=== PATIENT | female | born 1980 ===

== ENCOUNTER 2018-01-13 09:21 | Emergency (ER) | payer OTHER ==
[2018-01-13 10:41] VITALS: BP 102/76
--- NOTE | 2018-01-13 12:02 | UC ---
Respiratory Complaint HPI - HPI Summary HPI Summary: 5 DAYS OF SINUS CONGESTION/PRESSURE, THICK GREEN NASAL DISCHARGE WITH OCCASIONAL STREAKS OF BLOOD, HEADACHE AND COUGH. NO FEVER, NAUSEA/VOMITING. PATIENT REPORTS SHE GETS SINUS INFECTIONS EVERY FEW MONTHS AND HER PCP BACK HOME IN [place] GIVES HER ANTIBIOTICS. - History of Current Complaint Chief Complaint: UCGeneralIllness Stated Complaint: SINUSES Time Seen by Provider: 01/13/18 11:40 Hx Obtained From: Patient Hx Last Menstrual Period: 12/23/17 Onset/Duration: Gradual Onset, Lasting Days, Still Present Timing: Constant Severity Initially: Moderate Severity Currently: Moderate Pain Intensity: 7 Pain Scale Used: 0-10 Numeric Character: Cough: Nonproductive Aggravating Factors: Nothing Alleviating Factors: Nothing Associated Signs And Symptoms: Positive: URI, Nasal Congestion, Sinus Discomfort. Negative: Dyspnea, Fever, Wheezing - Allergies/Home Medications Allergies/Adverse Reactions: Allergies Allergy/AdvReac Type Severity Reaction Status Date / Time No Known Allergies Allergy Verified 01/13/18 10:37 Home Medications: Home Medications L.acidoph,Paracasei, B.lactis [Probiotic] 1 each PO DAILY 01/13/18 [History Confirmed 01/13/18] Pseudoephedrine HCl [Sinus 12 Hour] 120 mg PO Q12HR 01/13/18 [History Confirmed 01/13/18] guaiFENesin [Guaifenesin] 600 mg PO DAILY 01/13/18 [History Confirmed 01/13/18] PMH/Surg Hx/FS Hx/Imm Hx - Additional Past Medical History Additional PMH: RECURRENT SINUSITIS - Surgical History Surgical History: None - Family History Known Family History: Negative: Hypertension - Social History Alcohol Use: Rare Substance Use Type: None Smoking Status (MU): Never Smoked Tobacco Review of Systems Constitutional: Negative ENT: Ear Ache, Nasal Discharge, Sinus Congestion, Sinus Pain/Tenderness Respiratory: Negative Cardiovascular: Negative Gastrointestinal: Negative Neurological: Headache All Other Systems Reviewed And Are Negative: Yes Physical Exam Triage Information Reviewed: Yes Appearance: Well-Appearing, No Pain Distress, Well-Nourished Vital Signs: Initial Vital Signs Temp 99.4 F 01/13/18 10:33 Pulse 77 01/13/18 10:33 Resp 16 01/13/18 10:33 BP 102/76 01/13/18 10:33 Pulse Ox 100 01/13/18 10:33 Vital Signs Reviewed: Yes Eyes: Positive: Conjunctiva Clear ENT: Positive: Hearing grossly normal, Pharynx normal, TMs normal Neck: Positive: Supple, Nontender, No Lymphadenopathy Respiratory Exam: Normal Cardiovascular Exam: Normal Abdomen Description: Positive: Soft Musculoskeletal: Positive: No Edema Neurological: Positive: Alert Psychological: Positive: Age Appropriate Behavior Skin: Negative: rashes UC Diagnostic Evaluation - Laboratory O2 Sat by Pulse Oximetry: 100 Respiratory Course/Dx - Course Course Of Treatment: DISCUSSED AT LENGTH WITH PATIENT MY CONCERN ABOUT HER FREQUENT ANTIBIOTIC USE. SHE STATES SHE WILL FOLLOW-UP WITH HER PCP WHEN SHE RETURNS HOME AND WILL INQUIRE ABOUT AN ENT REFERRAL. - Differential Dx/Diagnosis Provider Diagnoses: ACUTE SINUSITIS Discharge - Sign-Out/Discharge Documenting (check all that apply): Discharge/Admit/Transfer - Discharge Plan Condition: Stable Disposition: HOME Prescriptions: Amoxicillin/Clavulanate TAB* [Augmentin TAB 875*] 875 mg PO BID #20 tab Patient Education Materials: Sinusitis (ED) Referrals: Non Staff,Doctor [Primary Care Provider] - Additional Instructions: YOUR SYMPTOMS MAY BE VIRALLY MEDIATED BUT GIVEN THE LENGTH OF TIME YOU HAVE BEEN ILL WE WILL COVER YOU WITH ANTIBIOTICS. IF YOU START THE MEDICINE BE SURE TO TAKE IT FOR THE FULL COURSE. REST, HYDRATE, OTC MEDS NEEDED. SEEK FOLLOW-UP WITH YOUR PCP BACK HOME WHEN YOU RETURN. CONSIDER ENT EVALUATION TO DISCUSS YOUR FREQUENT SINUS INFECTIONS. - Billing Disposition and Condition Condition: STABLE Disposition: HOME
== END 2018-01-13 12:10 | disposition home or self-care (01) ==
LOC: UCCORT 09:21
DX: J01.90 Acute sinusitis, unspecified (principal)
CPT/HCPCS: 99202; G0463